=== PATIENT | male | born 1990 | race Caucasian/White ===

== ENCOUNTER 2022-06-07 01:56 | Emergency (ER) | payer BC ==
[~2022-06-07] VITALS: Ht 348 cm; Wt 118.0 kg
[2022-06-07 02:23] VITALS: BP 135/97
[2022-06-07] MEDS ORDERED: ACETAMINOPHEN 325MG TABLET PO ONE (05:00)
[2022-06-07] MEDS ORDERED: DIPHENHYDRAMINE 25MG CAPSULE PO ONE (05:00)
[2022-06-07] MEDS ORDERED: METOCLOPRAMIDE HCL 10MG TABLET PO ONE (05:00)
== END 2022-06-07 06:05 | disposition left against medical advice (07) ==
LOC: ER 01:56
DX: Z53.21 Procedure and treatment not carried out due to patient leaving prior to being seen by health care provider (principal)